=== PATIENT | male | born 1960 | race Caucasian/White ===

== ENCOUNTER 2016-03-25 22:59 | Emergency (ER) | payer OTHER ==
[2016-03-25 23:16] VITALS: BP 151/85; PULSE 83; TEMP 97.9; BMI 29.0
--- NOTE | 2016-03-26 00:50 | PDOC ---
History of Present Illness - General Chief Complaint: Bone Injury Stated Complaint: FINGER INJURY Time Seen by Provider: 03/26/16 00:00 History Source: Patient Exam Limitations: No Limitations - History of Present Illness Initial Comments: 03/26/16 00:56 Chief complaint: Right thumb injury Patient is a 45-year-old male with a history of elevated cholesterol states he was at the gym in a machine crushed his right thumb which is now painful. There is no skin opening. GENERAL/CONSTITUTIONAL: No fever, weakness. dizziness HEAD, EYES, EARS, NOSE AND THROAT: No change in vision. No ear pain or discharge. No sore throat. CARDIOVASCULAR: No chest pain RESPIRATORY: No shortness of breath or cough GASTROINTESTINAL: No pain, nausea, vomiting, diarrhea or constipation GENITOURINARY: No dysuria MUSCULOSKELETAL: No neck or back pain, + right thumb SKIN: No rash NEUROLOGIC: No headache, vertigo, loss of consciousness, or loss of sensation. GENERAL: The patient is awake, alert, and fully oriented, in no acute distress. HEAD: Normal with no signs of trauma. EYES: Pupils equal, round and reactive to light, sclera anicteric, conjunctiva clear. ENT: pharynx: no erythema, no exudate, uvula midline NECK: supple CHEST: clear, nontender, rr ABD: soft, nontender EXTREMITIES: Right thumb with mild swelling, some ecchymosis to the underneath skin, no subungual hematoma, no deformity, full range of motion, neurovascular intact. Rest of hand shows negative exam, other extremities, normal range of motion, no edema. NEUROLOGICAL: Normal speech, normal gait. SKIN: Warm, Dry Past History - Past Medical History Allergies/Adverse Reactions: Allergies Allergy/AdvReac Type Severity Reaction Status Date / Time No Known Allergies Allergy Verified 03/25/16 23:11 Home Medications: Ambulatory Orders Fenofibrate 50 mg PO DAILY 03/25/16 Hypercholesterolemia: Yes - Psycho/Social/Smoking Cessation Hx Suicidal Ideation: No Smoking History: Never smoked Have you smoked in the past 12 months: No Number of Cigarettes Smoked Daily: 0 Information on smoking cessation initiated: No Hx Alcohol Use: No Drug/Substance Use Hx: No *Physical Exam - Vital Signs Last Vital Signs Temp Pulse Resp BP Pulse Ox 97.9 F 83 14 151/85 97 03/25/16 23:13 03/25/16 23:13 03/25/16 23:13 03/25/16 23:13 03/25/16 23:13 Procedures - Splinting Splint Location: Right: Finger Pre-Proc Neuro Vasc Exam: normal Pre-Made Type: metal Post-Proc Neuro Vasc Exam: normal Juarez Bandage: no Sling: No Complications: No ED Treatment Course - RADIOLOGY Radiology Studies Ordered: Category Date Time Status FINGER(S) RIGHT [RAD] Stat Radiology 03/26/16 00:01 Taken Medical Decision Making - Medical Decision Making 03/26/16 01:11 Patient with isolated thumb injury, x-ray shows no displaced fracture, question on one view whether there is a small fracture at the distal phalanx Patient was splinted, he will call for official results tomorrow, return if there is a subungual hematoma that becomes very painful and he was given the name of an orthopedist to follow-up with *DC/Admit/Observation/Transfer Diagnosis at time of Disposition: Fracture of thumb Qualifiers: Encounter type: initial encounter Fracture type: closed Phalanx: distal Fracture alignment: nondisplaced Laterality: right Qualified Code(s): S62.524A - Nondisplaced fracture of distal phalanx of right thumb, initial encounter for closed fracture - Discharge Dispostion Disposition: HOME Condition at time of disposition: Stable Admit: No - Referrals Referrals: Devan Mena MD [Primary Care Provider] - Rubén Carrillo MD [Staff Physician] - - Patient Instructions Printed Discharge Instructions: DI for Finger Fracture Additional Instructions: Elevate, wear splint You can apply ice for 20 minutes every 2 hours for the next 2 days Motrin 600 mg every 6 hours for pain. Call the orthopedist tomorrow You can call [phone] after 11 AM tomorrow to get your results
== END 2016-03-26 01:04 | disposition home or self-care (01) ==
LOC: JERFT 22:59
DX: S62.524A Nondisplaced fracture of distal phalanx of right thumb, initial encounter for closed fracture (principal); W31.89XA Contact with other specified machinery, initial encounter; Y93.B1 Activity, exercise machines primarily for muscle strengthening; Y92.39 Other specified sports and athletic area as the place of occurrence of the external cause; Y99.8 Other external cause status
CPT/HCPCS: 73140-TC-RT; 99281-25

== ENCOUNTER 2016-05-26 23:34 | Emergency (ER) | payer OTHER ==
[2016-05-27 00:17] LABS: BASOPHIL 0.2 % (0-2.0); EOSINOPHIL 0.3 % (0-4.5); MCH 26.8 pg (25.7-33.7); MCHC 32.5 g/dl (32.0-35.9); MEAN CELL VOLUME 82.4 fl (80-96); MEAN PLT VOLUME 8.6 fl (7.5-11.1); NEUTROPHILS 87.3 % (42.8-82.8); PLATELET COUNT 318 K/MM3 (134-434); RDW 13.7 % (11.9-15.9); WHITE BLOOD COUNT 12.5 K/mm3 (4.0-10.0)
[2016-05-27 00:45] VITALS: BP 125/83; PULSE 66; TEMP 98.2
[2016-05-27 00:45] LABS: ALBUMIN 4.5 g/dl (3.4-5.0); BILIRUBIN,TOTAL 0.4 mg/dL (0.2-1.0); CALCIUM 9.4 mg/dL (8.5-10.1); CREATININE 1.4 mg/dL (0.7-1.3); TOT PROT 7.7 g/dl (6.4-8.2)
[2016-05-27] MEDS ORDERED: morphine CARPU-JECT 4 MG/1 ML DISP.SYRIN IVPUSH ONE ×2 (00:51→01:44)
[2016-05-27] MEDS ORDERED: LOPERAMIDE HCL 2 MG CAPSULE PO ONE (00:51)
[2016-05-27] MEDS ORDERED: SODIUM CHLORIDE 0.9% 500 ML INFUS.BAG IV ONE (00:52)
[2016-05-27] MEDS ORDERED: PANTOPRAZOLE SODIUM 40 MG in SODIUM CHLORIDE 100 ML IVPB ONE (00:53)
--- NOTE | 2016-05-27 00:53 | PDOC ---
History of Present Illness - History of Present Illness Initial Comments: 05/27/16 01:43 Patient is a 55 year old male with significant medical hx of hyperlipidemia who is presenting to the ED with abdominal pain since this evening. This afternoon the patient went to his sisters birthday republic[employer] where he ate pork, rice, cake and coffee. The patient states that his symptoms began a half hour later. He complains of progressive, severe abdominal pain that is localized to the upper abdomen diffusely. The patient's abdominal pain is characterized as "sharp" and "stabbing". Patient also endorses some mild nausea. He offers no other complaints. Denies fever, chills, vomiting, diarrhea, andchanges in urination. <Kelly Rogers - Last Filed: 05/27/16 01:43> <Uday Tse - Last Filed: 05/27/16 03:45> - General Chief Complaint: Pain, Acute Stated Complaint: ABD PAIN Past History <Kelly Rogers - Last Filed: 05/27/16 01:43> - Past Medical History Hypercholesterolemia: Yes - Psycho/Social/Smoking Cessation Hx Suicidal Ideation: No Smoking History: Never smoked Have you smoked in the past 12 months: No Number of Cigarettes Smoked Daily: 0 Information on smoking cessation initiated: No Hx Alcohol Use: No Drug/Substance Use Hx: No <Uday Tse - Last Filed: 05/27/16 03:45> - Past Medical History Allergies/Adverse Reactions: Allergies Allergy/AdvReac Type Severity Reaction Status Date / Time No Known Allergies Allergy Verified 05/26/16 23:59 Home Medications: Ambulatory Orders Loperamide HCl [Imodium -] 2 mg PO Q8H PRN #10 capsule 05/27/16 Ondansetron [Zofran *Odt*] 8 mg SL BID PRN #30 od.tablet 05/27/16 Review of Systems - Review of Systems Comments:: 05/27/16 01:47 GENERAL/CONSTITUTIONAL: No fever or chills. No weakness. HEAD, EYES, EARS, NOSE AND THROAT: No change in vision. No ear pain or discharge. No sore throat. CARDIOVASCULAR: No chest pain or shortness of breath. RESPIRATORY: No cough, wheezing, or hemoptysis. GASTROINTESTINAL: Abdominal pain, nausea. No vomiting, diarrhea or constipation. GENITOURINARY: No dysuria, frequency, or change in urination. MUSCULOSKELETAL: No joint or muscle swelling or pain. No neck or back pain. SKIN: No rash NEUROLOGIC: No headache, vertigo, loss of consciousness, or change in strength/ sensation. <KenKelly - Last Filed: 05/27/16 01:43> *Physical Exam - Vital Signs Last Vital Signs Temp Pulse Resp BP Pulse Ox 98.2 F 66 20 125/83 100 05/26/16 23:59 05/26/16 23:59 05/26/16 23:59 05/26/16 23:59 05/26/16 23:59 - Physical Exam Comments: 05/27/16 01:48 GENERAL: Awake, alert, and fully oriented, in no acute distress HEAD: No signs of trauma EYES: PERRLA, EOMI, sclera anicteric, conjunctiva clear ENT: Auricles normal inspection, hearing grossly normal, nares patent, oropharynx clear without exudates. Moist mucosa NECK: Normal ROM, supple, no lymphadenopathy, JVD, or masses LUNGS: Breath sounds equal, clear to auscultation bilaterally. No wheezes, and no crackles HEART: Regular rate and rhythm, normal S1 and S2, no murmurs, rubs or gallops ABDOMEN: Soft, epigastric tenderness, normoactive bowel sounds. No guarding, no rebound. No masses EXTREMITIES: Normal range of motion, no edema. No clubbing or cyanosis. No cords, erythema, or tenderness NEUROLOGICAL: Cranial nerves II through XII grossly intact. Normal speech, normal gait SKIN: Warm, Dry, normal turgor, no rashes or lesions noted. ENDOCRINE: No increased thirst. No abnormal weight change. HEMATOLOGIC/LYMPHATIC: No anemia, easy bleeding, or history of blood clots. ALLERGIC/IMMUNOLOGIC: No hives or skin allergy. <Kelly Rogers - Last Filed: 05/27/16 01:43> - Vital Signs Last Vital Signs Temp Pulse Resp BP Pulse Ox 98.2 F 66 20 125/83 100 05/26/16 23:59 05/26/16 23:59 05/26/16 23:59 05/26/16 23:59 05/26/16 23:59 <Uday Tse - Last Filed: 05/27/16 03:45> ED Treatment Course - LABORATORY CBC & Chemistry Diagram: 05/26/16 23:59 05/26/16 23:59 - ADDITIONAL ORDERS Additional order review: Laboratory Results 05/26/16 05/26/16 23:59 23:59 Sodium Cancelled 138 Potassium Cancelled 4.6 Chloride Cancelled 100 Carbon Dioxide Cancelled 27 Anion Gap Cancelled 11 BUN Cancelled 30 H Creatinine Cancelled 1.4 H Creat Clearance w eGFR Cancelled 52.81 Random Glucose Cancelled 152 H Calcium Cancelled 9.4 Phosphorus 2.5 Magnesium 2.1 Total Bilirubin Cancelled 0.4 AST Cancelled 22 ALT Cancelled 29 Alkaline Phosphatase Cancelled 73 Creatine Kinase 318 H Troponin I < 0.02 Total Protein Cancelled 7.7 Albumin Cancelled 4.5 Lipase 176 05/26/16 23:59 RBC 4.80 MCV 82.4 MCHC 32.5 RDW 13.7 MPV 8.6 Neutrophils % 87.3 H Lymphocytes % 9.0 Monocytes % 3.2 L Eosinophils % 0.3 Basophils % 0.2 <Kelly Rogers - Last Filed: 05/27/16 01:43> - LABORATORY CBC & Chemistry Diagram: 05/26/16 23:59 05/26/16 23:59 - ADDITIONAL ORDERS Additional order review: Laboratory Results 05/26/16 23:59 Sodium 138 Potassium 4.6 Chloride 100 Carbon Dioxide 27 Anion Gap 11 BUN 30 H Creatinine 1.4 H Creat Clearance w eGFR 52.81 Random Glucose 152 H Calcium 9.4 Total Bilirubin 0.4 AST 22 ALT 29 Alkaline Phosphatase 73 Total Protein 7.7 Albumin 4.5 05/26/16 23:59 RBC 4.80 MCV 82.4 MCHC 32.5 RDW 13.7 MPV 8.6 Neutrophils % 87.3 H Lymphocytes % 9.0 Monocytes % 3.2 L Eosinophils % 0.3 Basophils % 0.2 <Uday Tse - Last Filed: 05/27/16 03:45> Medical Decision Making - Medical Decision Making 05/27/16 03:42 This is a 55yo m with abdominal cramping 30 minutes after eating pork and rice at birthday gathering this afternoon. He has no had any watery bowel movements or vomiting. He feels completely asymptomatic and much improved after having analgesia. Will encourage continued aggressive hydration, nutrition as tolerated and follow up with the PMD within the next 48 hours. <Uday Tse - Last Filed: 05/27/16 03:45> *DC/Admit/Observation/Transfer - Attestations Scribe Attestion: 05/27/16 01:49 Documentation prepared by Kelly Rogers, acting as biomedical specialist for Uday Tse MD. <Kelly Rogers - Last Filed: 05/27/16 01:43> - Discharge Dispostion Admit: No Decision to Admit order Date/Time: 05/27/16 03:41 - Attestations Physician Attestion: 05/27/16 03:45 I, Dr. Uday Tse MD, attest that this document has been prepared under my direction and personally reviewed by me in its entirety. I further attest, that it accurately reflects all work, treatment, procedures and medical decision -making performed by me. <Uday Tse - Last Filed: 05/27/16 03:45> Diagnosis at time of Disposition: Abdominal cramps Food poisoning Qualifiers: Encounter type: initial encounter Injury intent: accidental or unintentional Qualified Code(s): T62.91XA - Toxic effect of unspecified noxious substance eaten as food, accidental (unintentional), initial encounter Abdominal pain Qualifiers: Abdominal location: generalized Qualified Code(s): R10.84 - Generalized abdominal pain - Discharge Dispostion Disposition: HOME Condition at time of disposition: Good - Prescriptions Prescriptions: Loperamide HCl [Imodium -] 2 mg PO Q8H PRN #10 capsule PRN Reason: cramping Ondansetron [Zofran *Odt*] 8 mg SL BID PRN #30 od.tablet PRN Reason: Nausea
[2016-05-27 01:34] LABS: MAGNESIUM 2.1 mg/dL (1.8-2.4); PHOSPHOROUS 2.5 mg/dL (2.5-4.9)
[2016-05-27 01:35] LABS: TROPONIN I < 0.02 ng/ml (0.00-0.05)
[2016-05-27] MEDS ORDERED: LOPERAMIDE HCL 2 MG CAPSULE ONE (01:42)
[2016-05-27] MEDS ORDERED: PANTOPRAZOLE SODIUM 100 ML IVPB ONE (01:42)
[2016-05-27] MEDS ORDERED: morphine CARPU-JECT 4 MG/1 ML DISP.SYRIN ONE (01:42)
[2016-05-27] MEDS ORDERED: ONDANSETRON 4 MG/2 ML VIAL IVPUSH ONE (01:44)
== END 2016-05-27 03:52 | disposition home or self-care (01) ==
LOC: JER 23:34
PROC: 3E033GC Introduction of Other Therapeutic Substance into Peripheral Vein, Percutaneous Approach (ICD-10-PCS; principal; 2016-05-26)
PROC: 3E033NZ Introduction of Analgesics, Hypnotics, Sedatives into Peripheral Vein, Percutaneous Approach (ICD-10-PCS; 2016-05-26)
DX: T62.8X1A Toxic effect of other specified noxious substances eaten as food, accidental (unintentional), initial encounter (principal); R10.13 Epigastric pain; R11.0 Nausea; Y92.038 Other place in apartment as the place of occurrence of the external cause
CPT/HCPCS: 36415; 80053; 82550; 82553; 83690; 83735; 84100; 84484; 85025; 99282-25

== ENCOUNTER 2016-12-19 13:26 | Emergency (ER) | payer OTHER ==
[2016-12-19 13:33] VITALS: BP 145/82; PULSE 67; TEMP 97.8; BMI 29.9
[2016-12-19] MEDS ORDERED: IBUPROFEN 600 MG TABLET (FP) PO ONE ×2 (14:33→14:36)
--- NOTE | 2016-12-19 14:39 | PDOC ---
History of Present Illness - General Chief Complaint: Pain, Acute Stated Complaint: INJURY Time Seen by Provider: 12/19/16 13:57 History Source: Patient Exam Limitations: No Limitations - History of Present Illness Initial Comments: 12/19/16 14:40 c/o injuring right shoulder lifting heavy grocery bags this AM. no meds taken for pain [employer]. pt has limited ROM due to pain 12/19/16 14:40 Occurred: reports: this morning Past History - Past Medical History Allergies/Adverse Reactions: Allergies Allergy/AdvReac Type Severity Reaction Status Date / Time No Known Allergies Allergy Verified 12/19/16 13:29 Home Medications: Ambulatory Orders Loperamide HCl [Imodium -] 2 mg PO Q8H PRN #10 capsule 05/27/16 Ondansetron [Zofran *Odt*] 8 mg SL BID PRN #30 od.tablet 05/27/16 Hypercholesterolemia: Yes - Suicide/Smoking/Psychosocial Hx Smoking History: Never smoked Have you smoked in the past 12 months: No Number of Cigarettes Smoked Daily: 0 Information on smoking cessation initiated: No Hx Alcohol Use: No Drug/Substance Use Hx: No *Physical Exam - Vital Signs Last Vital Signs Temp Pulse Resp BP Pulse Ox 97.8 F 67 20 145/82 98 12/19/16 13:29 12/19/16 13:29 12/19/16 13:29 12/19/16 13:29 12/19/16 13:29 - Physical Exam General Appearance: Yes: Nourished, Appropriately Dressed HEENT: positive: EOMI, ISI, TMs Normal, Pharynx Normal Neck: positive: Supple Respiratory/Chest: positive: Lungs Clear, Normal Breath Sounds Cardiovascular: positive: Regular Rhythm, Regular Rate Extremity: positive: Normal Inspection, Tender (anterior right shoulder ) Integumentary: positive: Normal Color, Dry, Warm Neurologic: positive: suspension cord tier II-XII NML intact, Fully Oriented, Alert, Normal Mood/ Affect Procedures - Splinting Sling: Yes ED Treatment Course - RADIOLOGY Radiology Studies Ordered: Category Date Time Status SHOULDER-RIGHT [RAD] Stat Radiology 12/19/16 14:33 Ordered Medical Decision Making - Medical Decision Making 12/19/16 14:40 cc: right shoulder pain after lifitng heavy bags this morning. nv intact pt is right handed pain with abduction, extension , adduction, no deformity , no swelling or crepitus 12/19/16 14:42 xrays are negative, sling placed, pt feels relief with motrin. pt understands the need for follow up with ortho next week for a followup exam. 12/19/16 18:12 *DC/Admit/Observation/Transfer Diagnosis at time of Disposition: Shoulder sprain Qualifiers: Encounter type: initial encounter Shoulder sprain type: unspecified sprain Laterality: right Qualified Code(s): S43.401A - Unspecified sprain of right shoulder joint, initial encounter - Discharge Dispostion Disposition: HOME Condition at time of disposition: Good - Referrals Referrals: Abdirashid Hackett MD [Primary Care Provider] - Rony Hobbs MD [Staff Physician] - - Patient Instructions Printed Discharge Instructions: How to Use a Sling Additional Instructions: apply ice every 2hrs for 15 minutes while awake for the next 2 days take motrin (ibuprofen, advil) over the counter or tylenol for pain as directed use the sling while awake remove to sleep follow with the orthopedist for follow up next week if pain worsens or persists beyond 3 days of rest, no heavy lifitng or overusing the shoulder
== END 2016-12-19 15:45 | disposition home or self-care (01) ==
LOC: JERFT 13:26
DX: S43.401A Unspecified sprain of right shoulder joint, initial encounter (principal); X50.0XXA Overexertion from strenuous movement or load, initial encounter; Y93.89 Activity, other specified; Y92.89 Other specified places as the place of occurrence of the external cause; Y99.8 Other external cause status
CPT/HCPCS: 73030-TC-RT; 99281-25

== ENCOUNTER 2017-06-23 09:25 | Emergency (ER) | payer OTHER ==
[2017-06-23 09:37] VITALS: BP 151/80; PULSE 62; TEMP 97.4; BMI 30.7
--- NOTE | 2017-06-23 09:53 | PDOC ---
History of Present Illness - General Chief Complaint: Lightheaded Stated Complaint: FATIGUE Time Seen by Provider: 06/23/17 09:53 History Source: Patient Exam Limitations: No Limitations - History of Present Illness Initial Comments: 06/23/17 09:53 57yo M with history of HLD who is presenting to the ED for lightheadedness. He reports feeling lightheaded this morning when he got up from bed. He reports suddenly feeling lightheaded and having to sit back down. Pt reports having his last meal at 10:30pm Friday. He also reports no change in his sleep patterns. Pt states he has been drinking water normally, however his apartment is always very dry and hot. Pt reports his friend "feeling off" recently and was found to have a fatal AL so he felt nervous and wanted to be further worked up. Pt denies blurry vision, headache, n/v/d/c, fever/chills, SOB, CP/discomfort, palpitations, abdominal pain, and dysuria. Past History - Past Medical History Allergies/Adverse Reactions: Allergies Allergy/AdvReac Type Severity Reaction Status Date / Time No Known Allergies Allergy Verified 06/23/17 09:34 Home Medications: Ambulatory Orders NK [No Known Home Medication] 06/23/17 COPD: No Hypercholesterolemia: Yes - Suicide/Smoking/Psychosocial Hx Smoking History: Never smoked Have you smoked in the past 12 months: No Number of Cigarettes Smoked Daily: 0 Information on smoking cessation initiated: No Hx Alcohol Use: No Drug/Substance Use Hx: No Substance Use Type: None Review of Systems - Review of Systems Able to Perform ROS?: Yes Constitutional: Yes: Weakness. No: Chills, Fever, Night Sweats HEENTM: No: Blurred Vision, Nose Congestion, Throat Pain Respiratory: No: Cough, Shortness of Breath, Wheezing Cardiac (ROS): Yes: Lightheadedness. No: Chest Pain, Irregular Heart Rate, Palpitations, Syncope, Chest Tightness ABD/GI: No: Constipated, Diarrhea, Nausea, Vomiting, Abdominal cramping : Yes: Frequency. No: Dysuria Musculoskeletal: No: Back Pain, Neck Pain Neurological: No: Headache, Numbness, Tingling, Ataxia, Dizziness Hematologic/Lymphatic: No: Easy Bleeding, Easy Bruising *Physical Exam - Vital Signs Last Vital Signs Temp Pulse Resp BP Pulse Ox 97.4 F L 62 18 151/80 100 06/23/17 09:34 06/23/17 09:34 06/23/17 09:34 06/23/17 09:34 06/23/17 09:34 - Physical Exam Comments: 06/23/17 09:53 Gen: NAD, awake, alert sitting in bed, pale-appearing HEENT: EOMI, SERGEY, sclera anicteric, no conjunctival pallor, dry-moist mucosa LUNGS: CTA bilaterally CARDIAC: RRR no murmurs appreciated ABD: Soft, NT/ND, no guarding no rebound, normoactive BS EXT: No edema, 2+ distal pulses Heart Score/ECG Review #1 06/23/17 10:52 Sinus rhythm @56bpm. Normal axis, normal R-wave progression. Early J-point repolarization in precordial leads noted. No ST abnormalities and no T-wave inversions noted. IA interval 142ms, Qtc 420ms ED Treatment Course - LABORATORY CBC & Chemistry Diagram: 06/23/17 10:17 06/23/17 10:17 Medical Decision Making - Medical Decision Making 06/23/17 10:08 Highly suspicious for volume depletion --will r/o any anemia vs. electrolyte abnormalities: CBC, CMP --will get a baseline EKG for any acute changes --will start IVF --UA due to increased void frequency 06/23/17 10:36 BP sitting L arm: 154/89 (automated) BP standing L arm: 144/83 (automated) CBC unremarkable 06/23/17 11:07 CMP with potassium 5.2 (no EKG changes); otherwise unremarkable 06/23/17 11:42 UA; pt feeling better with IVF *DC/Admit/Observation/Transfer Diagnosis at time of Disposition: Lightheaded - Discharge Dispostion Disposition: HOME Condition at time of disposition: Stable Admit: No - Referrals Referrals: ON STAFF,NOT [Primary Care Provider] - - Patient Instructions Additional Instructions: You were seen in the ED for your lightheadedness. It is most likely a result of being volume depleted. Your labs had a slightly high potassium so please be conscious of any supplements, drinks, or foods with high potassium content Otherwise your labs were normal and you were given 1 liter of fluids through your IV Please be sure to follow with your primary care physician this week. If you ever feel chest pain or short of breath with your lightheadedness, return to the ER immediately. - Post Discharge Activity
[2017-06-23] MEDS ORDERED: SODIUM CHLORIDE 500 ML IV STA (10:01)
--- NOTE | 2017-06-23 10:25 | PDOC ---
Attending Attestation - Resident Resident Name: Uday Chaudhry - ED Attending Attestation I have performed the following: I have examined & evaluated the patient, The case was reviewed & discussed with the resident, I agree w/resident's findings & plan, Exceptions are as noted - HPI HPI: 06/23/17 10:19 57-year-old male history of hyperlipidemia here today complaining of feeling lightheaded upon awakening this morning when he sat up in bed patient states he felt like he was going to fall denies vertigo-like symptoms no sense of motion or spinning. But says he felt lightheaded he was able to sit down or lie back down to relieve his symptoms he has been eating and drinking normally no recent alcohol or other drug use. No fevers chills cough denies any chest pain or palpitations. Has had similar episode when visiting [place] in the past for which she was treated with IV fluids. Does have a family history of a mother with [place] in her 50s as well as family history of diabetes and hypertension patient does not currently take any medications denies any recent strenuous exercise 06/23/17 10:27 - Physicial Exam PE: 06/23/17 10:23 Awake alert no acute distress cardiac and lung exam is unremarkable with clear lungs bilaterally heart is regular no murmurs rubs or gallops abdomen is soft nontender no pulsatile masses. Skin is warm and dry. Neuro a sunshine has 5 out of 5 strength all 4 extremities, cranial nerves are intact, [id number] is normal, gait normal, negative Bondurant-Hallpike, negative Romberg. - Medical Decision Making 06/23/17 10:24 Differential diagnosis includes dehydration, anemia, electrolyte abnormality, patient denies vertigo like symptoms and has a normal cerebellar exam. Does report frequent urination therefore we'll check a UA to rule out UTI EKG to rule out dysrhythmia however the patient denies any symptoms. Plan IV hydration labs EKG and reassess likely DC home with close follow-up Heart Score/ECG Review #1 General ECG Interpretation: Sinus Rhythm, Normal Rate (56 sinus fabricio), Normal Intervals, No acute ischemic changes
[2017-06-23 10:34] LABS: HEMATOCRIT 44.8 % (35.4-49); HEMOGLOBIN 14.8 GM/dL (11.7-16.9); MCH 27.4 pg (25.7-33.7); MEAN CELL VOLUME 83.2 fl (80-96); MEAN PLT VOLUME 8.3 fl (7.5-11.1); PLATELET COUNT 266 K/MM3 (134-434); RBC 5.39 M/mm3 (4.00-5.60); RDW 14.1 % (11.9-15.9); WHITE BLOOD COUNT 5.7 K/mm3 (4.0-10.0)
[2017-06-23 10:58] LABS: ALBUMIN 4.4 g/dl (3.4-5.0); ALK PHOS 86 U/L (45-117); ANION GAP 3 (8-16); BILIRUBIN,TOTAL 0.4 mg/dL (0.2-1.0); BLOOD UREA NITROGEN 23 mg/dL (7-18); CALCIUM 9.6 mg/dL (8.5-10.1); CHLORIDE 103 mmol/L (98-107); CO2 31 mmol/L (21-32); CREATININE 1.1 mg/dL (0.7-1.3); GLUCOSE,RANDOM 122 mg/dL (74-106); POTASSIUM 5.2 mmol/L (3.5-5.1); SGOT/AST 23 U/L (15-37); SGPT/ALT 36 U/L (12-78); SODIUM 137 mmol/L (136-145); TOT PROT 8.1 g/dl (6.4-8.2)
[2017-06-23 11:47] LABS: URINE APPEARANCE CLEAR; URINE BILIRUBIN NEGATIVE (<2.0 mg/dL); URINE BLOOD NEGATIVE (NEGATIVE); URINE COLOR YELLOW; URINE GLUCOSE (UA) NEGATIVE (NEGATIVE); URINE KETONE NEGATIVE (NEGATIVE); URINE LEUK ESTERASE NEGATIVE (NEGATIVE); URINE NITRITE NEGATIVE (NEGATIVE); URINE PROTEIN NEGATIVE (NEGATIVE); URINE UROBILINOGEN NEGATIVE mg/dL (0.2-1.0)
--- NOTE | 2017-06-23 12:21 | EKG ---
Test Reason : Blood Pressure : / mmHG Vent. Rate : 056 BPM Atrial Rate : 056 BPM P-R Int : 142 ms QRS Dur : 084 ms QT Int : 436 ms P-R-T Axes : 052 033 027 degrees QTc Int : 420 ms SINUS BRADYCARDIA OTHERWISE NORMAL ECG NO PREVIOUS ECGS AVAILABLE Confirmed by PAPO GARCIA MD ([id number]) on 06/23/2017 12:20:53 PM Referred By: Confirmed By:PAPO GARCIA MD
== END 2017-06-23 12:37 | disposition home or self-care (01) ==
LOC: JER 09:25
DX: R42 Dizziness and giddiness (principal); E78.00 Pure hypercholesterolemia, unspecified
CPT/HCPCS: 36415; 80053; 81003; 85027; 93005; 93010; 99281-25

== ENCOUNTER 2021-08-17 15:39 | Emergency (ER) | payer OTHER ==
[2021-08-17 16:14] VITALS: BP 135/75; PULSE 65; TEMP 98.2; BMI 32.3
[2021-08-17] MEDS ORDERED: IBUPROFEN 600 MG TABLET (FP) PO ONE ×2 (17:01→17:11)
== END 2021-08-17 17:54 | disposition home or self-care (01) ==
LOC: JERFT 15:39
DX: M25.512 Pain in left shoulder (principal)
CPT/HCPCS: 73030-TC-LT-FY; 99283-25

== ENCOUNTER 2022-01-14 07:58 | Day surgery (SDC) | payer OTHER ==
[2022-01-10 12:15] VITALS: BMI 32.9
[2022-01-14] MEDS ORDERED: ACETAMINOPHEN 325 MG TABLET (FP) PO PRN (09:13)
[2022-01-14] MEDS ORDERED: oxyCODONE HCL 5 MG TABLET PO PRN (09:13)
[2022-01-14] MEDS ORDERED: ONDANSETRON 4 MG/2 ML VIAL IVPUSH PRN (09:13)
[2022-01-14] MEDS ORDERED: LACTATED RINGERS SOLUTION 1,000 ML IV SCH (09:15)
[2022-01-14] MEDS ORDERED: MIDAZOLAM HCL 2 MG/2 ML SINGLE DOSE VIAL ONE (09:17)
[2022-01-14] MEDS ORDERED: ROPIVACAINE HCL 0.5% 30ML VIAL ONE ×2 (09:18→09:24)
[2022-01-14] MEDS ORDERED: FENTANYL CITRATE/PF 50 MCG/ML VIAL ONE (09:18)
[2022-01-14] MEDS ORDERED: BUPIVACAINE HCL/PF 0.25% (2.5MG/ML) 10 ML VIAL ONE (09:24)
[2022-01-14] MEDS ORDERED: ceFAZolin SODIUM 1 GM VIAL ONE (10:47)
[2022-01-14] MEDS ORDERED: ONDANSETRON 4 MG/2 ML VIAL ONE (11:00)
[2022-01-14] MEDS ORDERED: DEXAMETHASONE SOD PHOSPHATE 4 MG/1 ML VIAL ONE (11:00)
[2022-01-14 15:42] VITALS: TEMP 97.7
[2022-01-14 16:51] VITALS: BP 126/70; PULSE 69; RESP 19
== END 2022-01-14 16:51 | disposition home or self-care (01) ==
LOC: FASU 07:58
PROVIDERS: ATTEND Orthopaedic Surgery Sports Medicine
PROC: 0PBB4ZZ Excision of Left Clavicle, Percutaneous Endoscopic Approach (ICD-10-PCS; principal; 2022-01-14 11:10)
PROC: 0RBK4ZZ Excision of Left Shoulder Joint, Percutaneous Endoscopic Approach (ICD-10-PCS; 2022-01-14 11:10)
PROC: 0LS44ZZ Reposition Left Upper Arm Tendon, Percutaneous Endoscopic Approach (ICD-10-PCS; 2022-01-14 11:10)
DX: S46.012A Strain of muscle(s) and tendon(s) of the rotator cuff of left shoulder, initial encounter (principal); M75.22 Bicipital tendinitis, left shoulder; M75.52 Bursitis of left shoulder; M65.822 Other synovitis and tenosynovitis, left upper arm; S43.432A Superior glenoid labrum lesion of left shoulder, initial encounter; M19.012 Primary osteoarthritis, left shoulder; X58.XXXA Exposure to other specified factors, initial encounter; Y93.9 Activity, unspecified; Y92.9 Unspecified place or not applicable
CPT/HCPCS: 94760; C1713

== ENCOUNTER 2022-04-12 08:07 | Day surgery (SDC) | payer OTHER ==
[2022-04-05 13:32] VITALS: BMI 33.3
[2022-04-12] MEDS ORDERED: MIDAZOLAM HCL 2 MG/2 ML SINGLE DOSE VIAL ONE (10:39)
[2022-04-12] MEDS ORDERED: DEXAMETHASONE SOD PHOSPHATE/PF 10 MG/ML SDV ONE (10:39)
[2022-04-12] MEDS ORDERED: ROPIVACAINE HCL 0.5% 30ML VIAL ONE (10:39)
[2022-04-12] MEDS ORDERED: PROPOFOL 20 ML ONE (10:58)
[2022-04-12] MEDS ORDERED: ePHEDrine SULFATE 50 MG/1 ML AMPULE ONE ×2 (13:24→13:25)
[2022-04-12] MEDS ORDERED: oxyCODONE HCL 5 MG TABLET PO PRN (15:23)
[2022-04-12] MEDS ORDERED: PROMETHAZINE HCL 25 MG/1 ML VIAL IVPB PRN (15:23)
[2022-04-12] MEDS ORDERED: ONDANSETRON 4 MG/2 ML VIAL IVPUSH PRN (15:23)
[2022-04-12] MEDS ORDERED: LACTATED RINGERS SOLUTION 1,000 ML IV SCH (15:30)
[2022-04-12] MEDS ORDERED: ceFAZolin SODIUM 1 GM VIAL ONE (16:02)
[2022-04-12] MEDS ORDERED: CEFAZOLIN 1 GM in DEXTROSE 5%-WATER - 50 ML IVPB SCH (16:15)
[2022-04-12 17:28] VITALS: BP 129/70
[2022-04-12 18:34] VITALS: PULSE 76; RESP 20; TEMP 97.8
== END 2022-04-12 18:34 | disposition home or self-care (01) ==
LOC: FASU 08:07
PROVIDERS: ATTEND Orthopaedic Surgery
PROC: 0RBK4ZZ Excision of Left Shoulder Joint, Percutaneous Endoscopic Approach (ICD-10-PCS; 2022-04-12)
PROC: 0LS44ZZ Reposition Left Upper Arm Tendon, Percutaneous Endoscopic Approach (ICD-10-PCS; 2022-04-12)
PROC: 0RNK4ZZ Release Left Shoulder Joint, Percutaneous Endoscopic Approach (ICD-10-PCS; 2022-04-12)
PROC: 0LM24ZZ Reattachment of Left Shoulder Tendon, Percutaneous Endoscopic Approach (ICD-10-PCS; principal; 2022-04-12 11:54)
PROC: 0PBB4ZZ Excision of Left Clavicle, Percutaneous Endoscopic Approach (ICD-10-PCS; 2022-04-12 11:54)
DX: S46.012D Strain of muscle(s) and tendon(s) of the rotator cuff of left shoulder, subsequent encounter (principal); S43.082 Other subluxation of left shoulder joint; M75.22 Bicipital tendinitis, left shoulder; M75.52 Bursitis of left shoulder; M65.822 Other synovitis and tenosynovitis, left upper arm; S43.432D Superior glenoid labrum lesion of left shoulder, subsequent encounter; M19.012 Primary osteoarthritis, left shoulder; M75.02 Adhesive capsulitis of left shoulder; X58.XXXD Exposure to other specified factors, subsequent encounter; T85.692A Other mechanical complication of permanent sutures, initial encounter; Y82.8 Other medical devices associated with adverse incidents; Y92.9 Unspecified place or not applicable
CPT/HCPCS: 88304-TC; 94760; C1713